=== PATIENT | female | born 1990 ===

== ENCOUNTER 2023-07-24 10:15 | Inpatient (IN) | payer OTHER ==
[~2023-07-24] VITALS: Ht 162.6 cm; Wt 78.9 kg
[2023-07-30] MEDS ORDERED: CEFTRIAXONE SODIUM 2,000 MG VIAL ONE (14:48)
[2023-07-30] MEDS ORDERED: METRONIDAZOLE/SODIUM CHLORIDE 500 MG/100 ML PIGGYBACK IV ONE ×2 (14:48→17:45)
[2023-07-30] MEDS ORDERED: BUPIVACAINE HCL/PF 0.5% 30ML ML ONE (15:51)
[2023-07-30] MEDS ORDERED: LIDOCAINE HCL 1%/Epi 20ML VIAL IJ ONE ×2 (15:51→17:45)
[2023-07-30] MEDS ORDERED: POVIDONE-IODINE 118 ML BOTT TOP ONE ×2 (16:43→17:45)
[2023-07-30] MEDS ORDERED: VISTASEAL DUAL APPICATOR 1 EACH APPL TOP ONE ×2 (17:23→17:45)
[2023-07-30] MEDS ORDERED: THROMBIN,HU/FIBRINOGEN/CALCIUM 10 ML SYRINGE TOP ONE ×2 (17:23→17:45)
[2023-07-30] MEDS ORDERED: CEFTRIAXONE SODIUM 2,000 MG VIAL IV ONE (17:45)
[2023-07-30] MEDS ORDERED: BUPIVACAINE HCL 30 ML VIAL IJ ONE (17:45)
[2023-07-30] MEDS ORDERED: RINGERS SOLUTION,LACTATED 1,000 ML IV SCH (18:51)
[2023-07-30] MEDS ORDERED: MORPHINE SULFATE 4 MG/ML CARTRIDGE IV SCH (20:00)
[2023-07-30] MEDS ORDERED: CELECOXIB 200 MG CAPSULE PO SCH (21:00)
[2023-07-30] MEDS ORDERED: ONDANSETRON HCL 2 MG/ML VIAL IV SCH (21:00)
[2023-07-30] MEDS ORDERED: CEFOXITIN SODIUM 2,000 MG VIAL IV SCH (21:00)
[2023-07-30] MEDS ORDERED: GABAPENTIN 100 MG CAPSULE PO SCH (21:00)
[2023-07-30 21:11] LABS: HEMATOCRIT 36.3 % (36.0-45.00); HEMOGLOBIN 12.1 g/dL (12.0-15.00); MEAN CELL VOLUME 89.8 fL (80.00-100.00); MEAN CORPUSCULAR HEMOGLOBIN 30.1 pg (27.00-32.0); MEAN CORPUSCULAR HGB CONC 33.5 g/dl (32.0-36.0); PLATELET COUNT 264 K/uL (150-450); RED BLOOD COUNT 4.04 M/uL (4.00-6.00)
[2023-07-30 21:28] LABS: CALCIUM 9.1 mg/dL (8.5-10.1); CREATININE SERUM 0.86 mg/dL (0.55-1.02); GFR 76.96; POTASSIUM 3.73 mEq/L (3.5-5.1)
[2023-07-30] MEDS ORDERED: CEFOXITIN SODIUM 2,000 MG VIAL IV ONE (21:37)
[2023-07-31] MEDS ORDERED: ACETAMINOPHEN 325 MG TABLET PO SCH
[2023-07-31] MEDS ORDERED: ACETAMINOPHEN 500 MG GEL..CAP PO ONE (00:30)
[2023-07-31] MEDS ORDERED: ONDANSETRON HCL 2 MG/ML VIAL ONE (00:31)
[2023-07-31 01:30] LABS: HEMOGLOBIN 11.6 g/dL (12.0-15.00); MEAN CORPUSCULAR HEMOGLOBIN 30.3 pg (27.00-32.0); MEAN CORPUSCULAR HGB CONC 34.1 g/dl (32.0-36.0); PLATELET COUNT 254 K/uL (150-450); RED BLOOD COUNT 3.83 M/uL (4.00-6.00); RED CELL DISTRIBUTION WIDTH 13.1 % (11.5-14.5)
[2023-07-31] MEDS ORDERED: ACETAMINOPHEN 500 MG GEL..CAP PO STA (07:58)
[2023-07-31] MEDS ORDERED: ACETAMINOPHEN 500 MG GEL..CAP PO SCH (12:00)
[2023-07-31] MEDS ORDERED: GABAPENTIN 100 MG CAPSULE PO SCH (17:00)
[2023-08-01 06:33] LABS: HEMATOCRIT 28.3 % (36.0-45.00); HEMOGLOBIN 9.8 g/dL (12.0-15.00); MEAN CELL VOLUME 89.5 fL (80.00-100.00); MEAN CORPUSCULAR HGB CONC 34.6 g/dl (32.0-36.0); PLATELET COUNT 194 K/uL (150-450); RED BLOOD COUNT 3.16 M/uL (4.00-6.00)
[2023-08-01 07:00] LABS: CALCIUM 8.3 mg/dL (8.5-10.1); CREATININE SERUM 0.74 mg/dL (0.55-1.02); GFR 91.54; PHOSPHOROUS 2.4 mg/dL (2.5-4.9); POTASSIUM 3.72 mEq/L (3.5-5.1)
[2023-08-01] MEDS ORDERED: Cyanocobalamin/Mecobalamin 1 TAB.SL SL SCH (09:00)
[2023-08-01] MEDS ORDERED: SOD FERRIC GLUC COMPLX/SUCROSE 62.5 MG in 0.9 % SODIUM CHLORIDE 50 ML IV SCH (09:00)
[2023-08-01] MEDS ORDERED: POTASSIUM PHOS,M-BASIC-D-BASIC 3 MM/ML VIAL IV ONE (11:00)
[2023-08-01] MEDS ORDERED: POLYETHYLENE GLYCOL 3350 17 GM BLIST.PACK PO SCH (21:00)
[2023-08-02 07:29] LABS: HEMATOCRIT 26.7 % (36.0-45.00); HEMOGLOBIN 9.2 g/dL (12.0-15.00); MEAN CELL VOLUME 90.3 fL (80.00-100.00); MEAN CORPUSCULAR HGB CONC 34.3 g/dl (32.0-36.0); PLATELET COUNT 189 K/uL (150-450); RED BLOOD COUNT 2.96 M/uL (4.00-6.00)
[2023-08-02] MEDS ORDERED: SOD FERRIC GLUC COMPLX/SUCROSE 62.5 MG/5 ML AMPUL IV ONE (07:55)
[2023-08-02] MEDS ORDERED: METOCLOPRAMIDE HCL 5 MG/ML VIAL IV SCH (09:23)
[2023-08-02] MEDS ORDERED: FAMOTIDINE/PF 20 MG in 0.9 % SODIUM CHLORIDE 8 ML IV PUSH SCH (09:24)
[2023-08-02] MEDS ORDERED: PANTOPRAZOLE SODIUM 40 MG/VIAL VIAL IV PUSH SCH (09:24)
[2023-08-02] MEDS ORDERED: HYOSCYAMINE SULFATE 0.125 MG TAB.SUBL SL SCH (09:24)
[2023-08-02] MEDS ORDERED: FAMOTIDINE/PF 20 MG/2 ML VIAL ONE (16:02)
[2023-08-03] MEDS ORDERED: INTESTINEX680 M1 PO (11:35)
[2023-08-03] MEDS ORDERED: ONDANSETRON ODT4 MG PO (11:35)
[2023-08-03] MEDS ORDERED: GAS RELIEF125 MG PO (11:35)
[2023-08-03] MEDS ORDERED: HYOSCYAMINE0.125 M1 SL (11:35)
[2023-08-03] MEDS ORDERED: NEURONTIN300 MG PO (11:36)
[2023-08-03] MEDS ORDERED: CELECOXIB200 MG PO (11:36)
== END 2023-08-03 12:23 | disposition home or self-care (01) | DRG 742 ==
LOC: O/R 07-30 07:41 → SURH 07-30 09:00 → OB/GYN 07-30 21:27 → SURG 07-31 15:27
PROVIDERS: Internal Medicine Geriatric Medicine; Obstetrics & Gynecology Gynecology; ADMIT Surgery; ATTEND Surgery
PROC: 0UT14ZZ Resection of Left Ovary, Percutaneous Endoscopic Approach (ICD-10-PCS; 2023-07-30)
PROC: 0DNW4ZZ Release Peritoneum, Percutaneous Endoscopic Approach (ICD-10-PCS; 2023-07-30)
PROC: 0DJD8ZZ Inspection of Lower Intestinal Tract, Via Natural or Artificial Opening Endoscopic (ICD-10-PCS; 2023-07-30)
PROC: 0TN64ZZ Release Right Ureter, Percutaneous Endoscopic Approach (ICD-10-PCS; 2023-07-30)
PROC: 07BC4ZZ Excision of Pelvis Lymphatic, Percutaneous Endoscopic Approach (ICD-10-PCS; 2023-07-30)
PROC: 0UT94ZZ Resection of Uterus, Percutaneous Endoscopic Approach (ICD-10-PCS; principal; 2023-07-30 13:35)
PROC: 0UT54ZZ Resection of Right Fallopian Tube, Percutaneous Endoscopic Approach (ICD-10-PCS; 2023-07-30 13:35)
DX: N80.02 Deep endometriosis of the uterus (principal); K56.7 Ileus, unspecified; K91.89 Other postprocedural complications and disorders of digestive system; N80.519 Endometriosis of the rectum, unspecified depth; N80.201 Endometriosis of right fallopian tube, unspecified depth; N73.6 Female pelvic peritoneal adhesions (postinfective); N80.319 Endometriosis of the anterior cul-de-sac, unspecified depth; K29.70 Gastritis, unspecified, without bleeding